=== PATIENT | female | born 1975 | race Caucasian/White ===

== ENCOUNTER 2016-12-14 11:58 | Emergency (ER) | payer BC ==
[2016-12-14] MEDS ORDERED: ONDANSETRON 4 MG/2 ML VIAL ONE (12:33)
[2016-12-14] MEDS ORDERED: HYDROmorphONE/DILAUDID 1 MG/ML SYR IVP ONE (12:34)
[2016-12-14] MEDS ORDERED: ONDANSETRON 4 MG/2 ML VIAL IVP ONE (12:34)
[2016-12-14] MEDS ORDERED: NS 1,000 ML IV ONE ×2 (12:34→15:23)
--- NOTE | 2016-12-14 12:34 | EDPHY ---
H & P Stated Complaint: N/V; L abd pain HPI/ROS: HPI CHIEF COMPLAINT: Abdominal pain, nausea, vomiting HISTORY OF PRESENT ILLNESS: This patient very pleasant 41-year-old female, significant past medical history for hypertension, presents emergency room with 1 day of acute onset of nausea, vomiting and 1 episode of diarrhea but multiple episodes of vomiting with periumbilical abdominal pain. States she cannot tolerate p. o.. She tells me she vomited 6 times. She was diaphoretic with this. Denies chest pain or shortness of breath. Pain is located periumbilical. Denies urinary complaints denies back pain. Past Medical History: Hypertension Past Surgical History: Cholecystectomy Social History: Denies daily use of drugs alcohol tobacco products Family History: Noncontributory ROS REVIEW OF SYSTEMS: A comprehensive 10 point review of systems is otherwise negative aside from elements mentioned in the history of present illness. Exam Constitutional triage nursing summary reviewed, vital signs reviewed, awake/ alert. Eyes normal conjunctivae and sclera, EOMI, PERRLA. HENT normal inspection, atraumatic, moist mucus membranes, no epistaxis, neck supple/ no meningismus, no raccoon eyes. Respiratory clear to auscultation bilaterally, normal breath sounds, no respiratory distress, no wheezing. Cardiovascular rate normal, regular rhythm, no murmur, no edema, distal pulses normal. Gastrointestinal soft, tender palpation periumbilical, no rebound, no guarding , normal bowel sounds, no distension, no pulsatile mass. Genitourinary no CVA tenderness. Musculoskeletal no midline vertebral tenderness, full range of motion, no calf swelling, no tenderness of extremities, no meningismus, good pulses, neurovascularly intact. Skin pink, warm, & dry, no rash, skin atraumatic. Neurologic awake, alert and oriented x 3, AAOx3, moves all 4 extremities equally, motor intact, sensory intact, CN II-XII intact, normal cerebellar, normal vision, normal speech. Psychiatric normal mood/affect. Heme/Lymph/Immune no lymphadenopathy. Differential diagnosis includes but is not limited to and in no particular order : Bowel obstruction, appendicitis, gallbladder disease, diverticulitis, colitis , enteritis, perforated viscus, gastritis, GERD, esophagitis, urinary tract infection, pyelonephritis, kidney stones Medical Decision Making: IV establishment, IV fluid bolus, check abdominal blood work, IV hydration normal saline, Zofran for nausea, Dilaudid for pain control. CT abdomen pelvis with IV contrast rule out acute appendicitis. Re-evaluation: CT scan of the abdomen pelvis with IV contrast. The results of the study are negative for acute inflammatory process normal appendix. 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 Recommend follow-up CT scan in 6-12 months. I will notify patient. However no other acute inflammatory process seen on CT scan.. The study was read by Dr. Loyola I viewed the images myself on the PACS system. 1546: Re-examination at this time patient is resting comfortably she tells me her nausea has greatly improved. She denies any ongoing abdominal pain or need to vomit. She is requesting to drink something. Her blood work and CT scan have been reviewed. I did give her CT report about her mesenteric lymph node inflammation she does understand follow-up CT in 6-12 months. Appendix is noted to be normal. Blood work has been reviewed she is requesting discharge. Take-home pack for Zofran. She understands return emergency room if she develops any worsening symptoms this includes worsening abdominal pain, fever, vomiting. Source: Patient - Personal History LMP (Females 10-55): Unknown Current Tetanus Diphtheria and Acellular Pertussis (TDAP): Yes - Medical/Surgical History Other PMH: HTN. endometrial ablation - Social History Smoking Status: Former smoker Constitutional: Initial Vital Signs Temperature (C) 36.7 C 12/14/16 12:00 Heart Rate 98 12/14/16 12:00 Respiratory Rate 18 12/14/16 12:00 Blood Pressure 116/90 H 12/14/16 12:00 O2 Sat (%) 98 12/14/16 12:00 O2 Delivery Mode Room Air Allergies/Adverse Reactions: ciprofloxacin [From Cipro] Allergy (Intermediate, Verified 12/14/16 12:04) Hives levofloxacin [From Levaquin] Allergy (Intermediate, Verified 12/14/16 12:04) Hives sulfamethoxazole [From Bactrim] Allergy (Mild, Verified 12/14/16 12:04) GI upset trimethoprim [From Bactrim] Allergy (Mild, Verified 12/14/16 12:04) GI upset Home Medications: Medication Instructions Recorded Nebivolol HCl [Bystolic 5 mg (*)] 5 mg PO DAILY 12/14/16 clonazePAM [klonoPIN (*)] 1 mg PO PRN 12/14/16 Medical Decision Making - Diagnostics Imaging Results: Imaging Impressions Abdomen CT 12/14/16 12:40 Impression: 1. Normal appendix. No enteritis or bowel lesion. 2. 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 Recommend follow-up CT of the abdomen and pelvis in 6 to 12 months to assure benignity. 3. Hepatic steatosis. No biliary dilation or choledocholithiasis. 4. Left nephrolithiasis. No obstructing ureteral calculus. Findings discussed with Emergency Department physician, Dr. Cipriano Sharma, on December 14, 2016 at 1406 hours.. - Data Points Laboratory Results: Laboratory Results 12/14/16 12:48 12/14/16 12:48 12/14/16 12/14/16 12/14/16 12:48 12:48 12:48 WBC 10.59 10^3/uL H 10^3/uL (3.80-9.50) RBC 5.37 10^6/uL H 10^6/uL (4.18-5.33) Hgb 16.2 g/dL g/dL (12.6-16.3) Hct 46.6 % % (38.0-47.0) MCV 86.8 fL fL (81.5-99.8) MCH 30.2 pg pg (27.9-34.1) MCHC 34.8 g/dL g/dL (32.4-36.7) RDW 12.3 % % (11.5-15.2) Plt Count 250 10^3/uL 10^3/uL (150-400) MPV 10.4 fL fL (8.7-11.7) Neut % (Auto) 89.9 % H % (39.3-74.2) Lymph % (Auto) 4.2 % L % (15.0-45.0) [place] % (Auto) 5.1 % % (4.5-13.0) Eos % (Auto) 0.2 % L % (0.6-7.6) Baso % (Auto) 0.3 % % (0.3-1.7) Nucleat RBC Rel Count 0.0 % % (0.0-0.2) Absolute Neuts (auto) 9.52 10^3/uL H 10^3/uL (1.70-6.50) Absolute Lymphs (auto) 0.45 10^3/uL L 10^3/uL (1.00-3.00) Absolute Monos (auto) 0.54 10^3/uL 10^3/uL (0.30-0.80) Absolute Eos (auto) 0.02 10^3/uL L 10^3/uL (0.03-0.40) Absolute Basos (auto) 0.03 10^3/uL 10^3/uL (0.02-0.10) Absolute Nucleated RBC 0.00 10^3/uL 10^3/uL (0-0.01) Immature Gran % 0.3 % % (0.0-1.1) Immature Gran # 0.03 10^3/uL 10^3/uL (0.00-0.10) PT 12.5 SEC SEC (12.0-15.0) INR 0.94 (0.83-1.16) APTT 23.5 SEC SEC (23.0-38.0) VBG Lactic Acid Sodium 144 mEq/L mEq/L (134-144) Potassium 4.3 mEq/L mEq/L (3.5-5.2) Chloride 107 mEq/L mEq/L (97-110) Carbon Dioxide 23 mEq/l mEq/l (22-31) Anion Gap 14 mEq/L mEq/L (8-16) BUN 14 mg/dL mg/dL (7-23) Creatinine 0.7 mg/dL mg/dL (0.6-1.0) Estimated GFR > 60 Glucose 118 mg/dL H mg/dL (70-100) Calcium 9.7 mg/dL mg/dL (8.5-10.4) Total Bilirubin 1.0 mg/dL mg/dL (0.1-1.4) Conjugated Bilirubin 0.5 mg/dL mg/dL (0.0-0.5) Unconjugated Bilirubin 0.5 mg/dL mg/dL (0.0-1.1) AST 28 IU/L IU/L (14-46) ALT 39 IU/L IU/L (9-52) Alkaline Phosphatase 89 IU/L IU/L (38-126) Troponin I < 0.012 ng/mL ng/mL (0-0.034) Total Protein 8.5 g/dL H g/dL (6.3-8.2) Albumin 5.2 g/dL H g/dL (3.5-5.0) Lipase 243.0 IU/L IU/L (23-300) 12/14/16 12:48 WBC RBC Hgb Hct MCV MCH MCHC RDW Plt Count MPV Neut % (Auto) Lymph % (Auto) [place] % (Auto) Eos % (Auto) Baso % (Auto) Nucleat RBC Rel Count Absolute Neuts (auto) Absolute Lymphs (auto) Absolute Monos (auto) Absolute Eos (auto) Absolute Basos (auto) Absolute Nucleated RBC Immature Gran % Immature Gran # PT INR APTT VBG Lactic Acid 1.7 mmol/L mmol/L (0.7-2.1) Sodium Potassium Chloride Carbon Dioxide Anion Gap BUN Creatinine Estimated GFR Glucose Calcium Total Bilirubin Conjugated Bilirubin Unconjugated Bilirubin AST ALT Alkaline Phosphatase Troponin I Total Protein Albumin Lipase Medications Given: Discontinued Medications Hydromorphone HCl (Dilaudid) 0.5 mg IVP EDNOW ONE Stop: 12/14/16 12:35 Last Admin: 12/14/16 12:52 Dose: Not Given Sodium Chloride (Ns) 1,000 mls @ 0 mls/hr IV ONCE ONE PRN Reason: Wide Open Stop: 12/14/16 12:35 Last Admin: 12/14/16 12:51 Dose: 1,000 mls Sodium Chloride (Ns) 1,000 mls @ 0 mls/hr IV ONCE ONE PRN Reason: Wide Open Stop: 12/14/16 15:24 Last Admin: 12/14/16 15:25 Dose: Not Given Ondansetron HCl (Zofran) 4 mg IVP EDNOW ONE Stop: 12/14/16 12:35 Last Admin: 12/14/16 12:53 Dose: 4 mg Departure - Departure Disposition: Home, Routine, Self-Care Clinical Impression: Abdominal pain Qualifiers: Abdominal location: generalized Qualified Code(s): R10.84 - Generalized abdominal pain Condition: Good Instructions: Acute Nausea and Vomiting (ED), Abdominal Pain (ED) Additional Instructions: 1. Please return emergency room if you have any worsening symptoms includes worsening abdominal pain, fever vomiting. 2. You need to repeat CT scan in 6-12 months to evaluate your panniculitis. Referrals: GOVIND MOHAN [Other] - As per Instructions
[2016-12-14 12:58] LABS: % IMMATURE GRANULYOCYTES 0.3 % (0.0-1.1); ABSOLUTE IMMATURE GRANULOCYTES 0.03 10^3/uL (0.00-0.10); ADD DIFF? NO; ADD MORPH? NO; ADD SCAN? NO; ATYPICAL LYMPHOCYTE FLAG 0 (0-99); FRAGMENT RBC FLAG 0 (0-99); HEMATOCRIT 46.6 % (38.0-47.0); HEMOGLOBIN 16.2 g/dL (12.6-16.3); LEFT SHIFT FLG 0 (0-99); LIPEMIA HEMOLYSIS FLAG 90 (0-99); MEAN CELL HEMOGLOBIN 30.2 pg (27.9-34.1); MEAN CELL HEMOGLOBIN CONCENTR. 34.8 g/dL (32.4-36.7); MEAN CELL VOLUME 86.8 fL (81.5-99.8); MEAN PLATELET VOLUME 10.4 fL (8.7-11.7); PLATELET CLUMPS FLAG 0 (0-99); PLATELET COUNT 250 10^3/uL (150-400); RED BLOOD CELL COUNT 5.37 10^6/uL (4.18-5.33); RED CELL DISTRIBUTION WIDTH 12.3 % (11.5-15.2)
[2016-12-14] MEDS ORDERED: IOPAMIDOL (ISOVUE-300) 100 ML BTL ONE (13:02)
[2016-12-14 13:08] LABS: APTT 23.5 SEC (23.0-38.0); INR 0.94 (0.83-1.16); PROTIME(PATIENT) 12.5 SEC (12.0-15.0)
[2016-12-14 13:14] LABS: ALANINE AMINOTRANSFERASE 39 IU/L (9-52); ALBUMIN 5.2 g/dL (3.5-5.0); ALKALINE PHOSPHATASE 89 IU/L (38-126); ANION GAP 14 mEq/L (8-16); ASPARTATE AMINOTRANSFERASE 28 IU/L (14-46); BILIRUBIN-CONJUGATED 0.5 mg/dL (0.0-0.5); BILIRUBIN-UNCONJUGATED 0.5 mg/dL (0.0-1.1); CALCIUM 9.7 mg/dL (8.5-10.4); CARBON DIOXIDE 23 mEq/l (22-31); CHLORIDE 107 mEq/L (97-110); CREATININE 0.7 mg/dL (0.6-1.0); GLOMERULAR FILTRATION RATE > 60; GLUCOSE 118 mg/dL (70-100); POTASSIUM 4.3 mEq/L (3.5-5.2); SODIUM 144 mEq/L (134-144); TOTAL PROTEIN 8.5 g/dL (6.3-8.2)
[2016-12-14 13:25] LABS: TROPONIN I < 0.012 ng/mL (0-0.034)
[2016-12-14 14:51] VITALS: TEMP 98.7
[2016-12-14] MEDS ORDERED: ONDANSETRON 4MG PREPACK#2 BTL TAKEHOME ONE (15:47)
[2016-12-14 16:10] VITALS: BP 122/68; PULSE 82; RESP 16; O2SAT 96
== END 2016-12-14 16:11 | disposition home or self-care (01) ==
DX: R10.84 Generalized abdominal pain (principal); I10 Essential (primary) hypertension; Z90.49 Acquired absence of other specified parts of digestive tract
CPT/HCPCS: 96374; J1170; J2405; Q9967